=== PATIENT | female | born 1950 | race Caucasian/White ===

== ENCOUNTER → 2022-07-27 13:42 | Outpatient (CLI) | payer MEDICARE, BC, SELFPAY | PROVIDERS: PCP Family Medicine; Referring Provider Family Medicine; Visit Provider Family Medicine | DX: Z78.0 Asymptomatic menopausal state (principal); Z13.820 Encounter for screening for osteoporosis; M85.851 Other specified disorders of bone density and structure, right thigh; Z92.241 Personal history of systemic steroid therapy | CPT/HCPCS: 77080 ==

== ENCOUNTER 2024-01-30 11:03 | Day surgery (SDC) | payer MEDICARE, BC, SELFPAY ==
[2024-01-30 11:23] VITALS: BP 156/68; PULSE 63; RESP 16; TEMP 36.6; O2SAT 97
--- NOTE | 2024-01-30 11:43 | PM.HP.1 ---
History of Present Illness History of Present Illness Date Patient Seen: 01/30/24 Chief complaint: Dx Colonoscopy Narrative: Personal history of colon polyp slow not on her last colonoscopy over 5 years ago. Also family history colon cancer in a grandmother [facility] Social History Smoking Status: Never smoker Meds Home Medications and Allergies Home Medications Medication Instructions Recorded Confirmed Type benralizumab [Fasenra Pen] SUBCUT 07/27/22 07/27/22 History levothyroxine 125 mcg PO 07/27/22 07/27/22 History montelukast [Singulair] PO 07/27/22 07/27/22 History simvastatin 40 mg PO 07/27/22 07/27/22 History Allergies Allergy/AdvReac Type Severity Reaction Status Date / Time No Known Drug Allergies Allergy Verified 01/30/24 11:42 Exam Vital Signs (past 8 hours): Oropharynx free of lesion Chest clear to auscultation percussion Cardiac exam reveals no S3 or murmur Assessment & Plan Assessment & Plan narrative: Personal history of colon polyps and colon cancer in a second-degree relative. Need for follow-up colonoscopy. Risks, benefits, alternatives have been explained. He
--- NOTE | 2024-01-30 11:45 | P.OP.COLON_ITS ---
Operative Date/Time/Diagnoses Date of procedure: 01/30/24 Pre-op diagnosis: See indication and findings Procedure & Clinicians Study performed: Colonoscopy Indications: Personal history of colon polyps and family history of colon cancer in a second- degree relative Surgeon: Dg Larios Procedure Notes Procedure in detail: After informed consent was obtained the patient was placed in left lateral decubitus position. The video colonoscope was introduced the rectum slowly advanced cecum. Preparation was good. On slow withdrawal mucosa was carefully examined. The scope was removed. The patient tolerated procedure well. Blood loss none Complications none Sedation mac Findings 1. Scattered sigmoid diverticulosis 2. Otherwise negative colonoscopy to cecum Given the patient's negative colonoscopy today and previous negative colonoscopy I would suggest follow-up in 7 years/approximately at 81 years of age.
[2024-01-30] MEDS: LACTATED RINGERS 1,000 ML 42 ML IV (11:53)
[2024-01-30 12:25] VITALS: BP 147/70; PULSE 74; RESP 16; TEMP 36.7; O2SAT 94
[2024-01-30 12:30] VITALS: BP 151/58; PULSE 71; RESP 15; O2SAT 95
[2024-01-30 12:35] VITALS: BP 144/66; PULSE 69; RESP 12; O2SAT 96
[2024-01-30 12:40] VITALS: BP 144/70; PULSE 66; RESP 18; TEMP 36.4; O2SAT 96
== END 2024-01-30 12:56 | disposition home or self-care (01) ==
PROVIDERS: PCP Family Medicine; Referring Provider Internal Medicine Gastroenterology; Visit Provider Internal Medicine Gastroenterology
PROC: 0DJD8ZZ Inspection of Lower Intestinal Tract, Via Natural or Artificial Opening Endoscopic (ICD-10-PCS; CPT 45378; principal; 2024-01-30 12:30)
DX: Z12.11 Encounter for screening for malignant neoplasm of colon (principal); Z86.010 Personal history of colon polyps
CPT/HCPCS: G0105; J2704